=== PATIENT | male | born 1995 | race Caucasian/White ===

== ENCOUNTER 2018-08-06 10:02 | Day surgery (SDC) | payer BC ==
[2018-07-28 15:59] VITALS: BMI 26.6
[2018-08-06] MEDS ORDERED: PROPOFOL 20 ML ONE ×2 (10:39)
[2018-08-06 11:50] VITALS: TEMP 98
[2018-08-06 12:49] VITALS: BP 120/76; PULSE 72
--- NOTE | 2018-08-11 11:28 | PATH ---
Surgical Pathology Report Patient Name: DOLLY SOSA [facility]. Rec. #: [id number] /Age/Gender: 1995 (Age: 23) / M Account: [id number] Location: [facility] Taken: 08/06/2018 Received: 08/06/2018 Reported: 08/11/2018 Physicians: Julia Rai M.D. Specimen(s) Received A: BX RIGHT COLON B: TRANSVERSE COLON C: DESCENDING COLON D: BX SIGMOID E: RECTUM Clinical History Rectal bleeding Postoperative diagnosis: Small hemorrhoids Final Diagnosis A. RIGHT COLON, BIOPSY: COLONIC MUCOSA WITH NO PATHOLOGIC FINDINGS. B. TRANSVERSE COLON, BIOPSY: COLONIC MUCOSA SHOWING SMALL BENIGN/REACTIVE LYMPHOID AGGREGATE. C. DESCENDING COLON, BIOPSY: COLONIC MUCOSA SHOWING SMALL BENIGN/REACTIVE LYMPHOID AGGREGATE. D. SIGMOID, BIOPSY: COLONIC MUCOSA WITH NO PATHOLOGIC FINDINGS. E. RECTUM, BIOPSY: COLONIC MUCOSA SHOWING MILD SURFACE HYPERPLASTIC CHANGE AND SMALL BENIGN/REACTIVE LYMPHOID AGGREGATE. Electronically Signed Angelica Ling M.D. Gross Description A. Received in formalin, labeled "biopsy right colon" is a luque, irregular portion of soft tissue measuring 0.4 cm. in greatest dimension. The specimen is submitted in toto in one cassette. B. Received in formalin, labeled "biopsy transverse colon" is a luque, irregular portion of soft tissue measuring 0.8 cm. in greatest dimension. The specimen is submitted in toto in one cassette. C. Received in formalin, labeled "biopsy descending colon" is a luque, irregular portion of soft tissue measuring 0.4 cm. in greatest dimension. The specimen is submitted in toto in one cassette. D. Received in formalin, labeled "sigmoid" is a luque, irregular portion of soft tissue measuring 0.4 cm. in greatest dimension. The specimen is submitted in toto in one cassette. E. Received in formalin, labeled "rectum" is a luque, irregular portion of soft tissue measuring 0.3 cm. in greatest dimension. The specimen is submitted in toto in one cassette. 08/06/201808/06/2018
== END 2018-08-06 12:50 | disposition home or self-care (01) ==
LOC: FASU-ENDO 10:02 → EDBD 11:30 → FASU-ENDO 12:50
PROVIDERS: ATTEND Internal Medicine Gastroenterology
PROC: 0DBL8ZX Excision of Transverse Colon, Via Natural or Artificial Opening Endoscopic, Diagnostic (ICD-10-PCS; 2018-08-06)
PROC: 0DBN8ZX Excision of Sigmoid Colon, Via Natural or Artificial Opening Endoscopic, Diagnostic (ICD-10-PCS; 2018-08-06)
PROC: 0DBP8ZX Excision of Rectum, Via Natural or Artificial Opening Endoscopic, Diagnostic (ICD-10-PCS; 2018-08-06)
PROC: 0DBM8ZX Excision of Descending Colon, Via Natural or Artificial Opening Endoscopic, Diagnostic (ICD-10-PCS; 2018-08-06)
PROC: 0DBK8ZX Excision of Ascending Colon, Via Natural or Artificial Opening Endoscopic, Diagnostic (ICD-10-PCS; principal; 2018-08-06 10:15)
DX: K64.8 Other hemorrhoids (principal); K63.5 Polyp of colon
CPT/HCPCS: 88305-TC